=== PATIENT | female | born 1990 | race Caucasian/White ===

== ENCOUNTER 2019-04-22 01:43 | Emergency (ER) | payer MEDICAID, MEDICARE ==
[2019-04-22 01:59] VITALS: BP 161/104; PULSE 110
--- NOTE | 2019-04-22 02:47 | EDM.PDOC ---
ED HPI GENERAL MEDICAL PROBLEM - General Chief Complaint: Laceration Stated Complaint: FINGER LACERATION Time Seen by Provider: 04/22/19 02:27 Source of Information: Reports: Patient History Limitations: Reports: No Limitations - History of Present Illness INITIAL COMMENTS - FREE TEXT/NARRATIVE: Ms. Champion is a pleasant 28-year-old woman with a past history significant for depression, PTSD, and fibromyalgia, who states that she accidentally lacerated the dorsal aspect of her left 2nd finger around 01:30 with a "regular kitchen knife". She is otherwise uninjured. She states that her last tetanus vaccination was in 2013. The patient's PCP is Dr. Lindsay Varghese. She did not receive an influenza vaccine this season, but agreed to receive one here. Left Finger-Index Pain Score (Numeric/FACES): 3 - Related Data Allergies Allergy/AdvReac Type Severity Reaction Status Date / Time duloxetine [From Cymbalta] Allergy Other Verified 04/22/19 02:00 milk Allergy Nausea Verified 04/22/19 02:00 nickel Allergy Rash Verified 04/22/19 02:00 Home Meds: Home Meds Amitriptyline [Elavil] 50 mg PO BEDTIME 04/22/19 [History] Fluticasone Propionate [Flovent HFA] 1 puff INH BID 04/22/19 [History] Gabapentin [Neurontin] 600 mg PO BID 04/22/19 [History] Insulin Aspart [NovoLOG] See Protocol SUBCUT WITHMEALSANDBED 04/22/19 [History] Insulin Glarg,Human.Rec.Analog [Lantus] 90 unit SUBCUT DAILY 04/22/19 [History] Omeprazole 20 mg PO DAILY 04/22/19 [History] Venlafaxine [Effexor XR] 150 mg PO DAILY 04/22/19 [History] atorvaSTATin Calcium [Lipitor] 20 mg PO DAILY 04/22/19 [History] buPROPion HCl [Wellbutrin Xl] 300 mg PO DAILY 04/22/19 [History] lisinopriL [Lisinopril] 20 mg PO DAILY 04/22/19 [History] metFORMIN [Glucophage] 500 mg PO BIDMEALS 04/22/19 [History] Past Medical History Cardiovascular History: Reports: High Cholesterol, Hypertension Respiratory History: Reports: Asthma (suspected, not tested), Sleep Apnea ( nightly CPAP) Gastrointestinal History: Reports: GERD Neurological History: Reports: Neuropathy, Diabetic Psychiatric History: Reports: Depression, PTSD, Other (See Below) (Fibromyalgia) Endocrine/Metabolic History: Reports: Diabetes, Type II, Obesity/BMI 30+ - Past Surgical History HEENT Surgical History: Reports: Adenoidectomy, Oral Surgery (wisdom teeth exraction), Tonsillectomy Social & Family History - Family History Family Medical History: Unobtainable - Tobacco Use Smoking Status *Q: Never Smoker Tobacco Use Within Last Twelve Months: Vaping (CBD) - Caffeine Use Caffeine Use: Reports: Soda - Alcohol Use Alcohol Use History: Yes Alcohol Use Frequency: Rarely - Recreational Drug Use Recreational Drug Use: Yes Drug Use in Last 12 Months: No Recreational Drug Type: Reports: Marijuana/Hashish (last smoked 2013) - Living Situation & Occupation Living situation: Reports: Single, Alone Occupation: Unemployed ED ROS GENERAL - Review of Systems Review Of Systems: Comprehensive ROS is negative, except as noted in HPI. ED EXAM, SKIN/RASH Exam: See Below Exam Limited By: No Limitations General Appearance: Alert, WD/WN, No Apparent Distress Extremities: Other (There is a 1 cm linear laceration running diagonally over the dorsal aspect of the patient's left second distal phalanx. The laceration does not involve the nailbed. There is no tendinous injury. Neurovascular status of the finger is intact.) ED SKIN PROCEDURES - Laceration/Wound Repair Left Hand Appearance: Subcutaneous, Linear, Clean Distal NVT: Neuro & Vascular Intact, No Tendon Injury Skin Prep: Saline Exploration/Debridement/Repair: Wound Explored, In a Bloodless Field, Explored to Base, No Foreign Material Found Closed with: Dermabond Lac/Wound length In cm: 1.0 Sterile Dressing Applied: None Tetanus Status Addressed: Yes Complications: No Course - Vital Signs Last Recorded V/S: Last Vital Signs Temp 36.3 C 04/22/19 01:56 Pulse 110 H 04/22/19 01:56 Resp 20 04/22/19 01:56 BP 161/104 H 04/22/19 01:56 Pulse Ox 98 04/22/19 01:56 - Orders/Labs/Meds Orders: Active Orders 24 hr Category Date Time Status Influenza Vaccine Charge [RC] .DISCHARGE Care 04/22/19 02:47 Active Meds: Medications Discontinued Medications Generic Name Dose Route Start Last Admin Trade Name Freq PRN Reason Stop Dose Admin Influenza Virus Vaccine 60 mcg 04/22/19 03:00 04/22/19 02:52 Fluzone Quad [id number] Syringe IM 04/22/19 03:01 60 mcg .ONCE ONE Administration - Re-Assessments/Exams Free Text/Narrative Re-Assessment/Exam: 04/22/19 02:44 The laceration to the dorsal aspect of the patient's left 2nd finger is not deep , and the edges of the wound appose each other nicely, therefore the wound was a good candidate for Dermabond. I applied Dermabond to the wound. The patient tolerated the procedure well. She will be given an influenza vaccine prior to discharge. Departure - Departure Time of Disposition: 02:45 Disposition: Home, Self-Care 01 Condition: Good Clinical Impression: Laceration of left index finger - Discharge Information *PRESCRIPTION DRUG MONITORING PROGRAM REVIEWED*: Not Applicable *COPY OF PRESCRIPTION DRUG MONITORING REPORT IN PATIENT LATOSHA: Not Applicable Instructions: Laceration Care, Adult, [id number] Referrals: Lindsay Varghese MD [Primary Care Provider] - Forms: ED Department Discharge Additional Instructions: You were seen in the emergency room after accidentally cutting the back of your left index finger. The wound was closed with Dermabond. After the glue has cured, we recommend that you apply Band-Aid over the Dermabond on a daily basis, to help protect it. Do not pick at the glue. Allow it to flake off on its own over the course of the next several days. If any other problems, please do not hesitate to return to the ER. *You were given an influenza vaccine during your ER visit.* Sepsis Event Note - Evaluation Sepsis Screening Result: No Definite Risk - Focused Exam Date Exam was Performed: 04/23/19 Time Exam was Performed: 02:37 - My Orders Last 24 Hours: My Active Orders 04/22/19 02:47 Influenza Vaccine Charge [RC] .DISCHARGE - Assessment/Plan Last 24 Hours: My Active Orders 04/22/19 02:47 Influenza Vaccine Charge [RC] .DISCHARGE
[2019-04-22] MEDS ORDERED: FLU Vacc QS2019-20(6MOS+)/PF 60 MCG/0.5 ML SYRINGE IM ONE (03:00)
== END 2019-04-22 02:57 | disposition home or self-care (01) ==
LOC: JD.ED 01:43
DX: S61.211A Laceration without foreign body of left index finger without damage to nail, initial encounter (principal); E11.9 Type 2 diabetes mellitus without complications; I10 Essential (primary) hypertension; Z91.048 Other nonmedicinal substance allergy status; Z79.899 Other long term (current) drug therapy; Z79.4 Long term (current) use of insulin; Z91.011 Allergy to milk products; Z88.8 Allergy status to other drugs, medicaments and biological substances; W26.0XXA Contact with knife, initial encounter
CPT/HCPCS: 12001; 90686; 99282; G0008

== ENCOUNTER 2019-06-13 21:54 | Emergency (ER) | payer MEDICARE, MEDICAID ==
[2019-06-13 22:10] VITALS: PULSE 110
--- NOTE | 2019-06-13 23:14 | EDM.PDOC ---
ED HPI GENERAL MEDICAL PROBLEM - General Chief Complaint: Respiratory Problem Stated Complaint: BACK PAIN/SOB Time Seen by Provider: 06/13/19 22:56 Source of Information: Reports: Patient History Limitations: Reports: No Limitations - History of Present Illness INITIAL COMMENTS - FREE TEXT/NARRATIVE: Ms. Champion is a pleasant 28-year-old woman with a past medical history significant for suspected asthma, obstructive sleep apnea, noncompliant with CPAP, depression, PTSD, fibromyalgia, diabetes, and morbid obesity, who states that she developed dyspnea 2 days ago, which has progressively been getting worse, and wheezing today, although she acknowledges she is not wheezing now. She states that she has a slight nonproductive cough that is chronic and no worse than usual. No recent fever or chills. She has had slight constipation. No recent nausea, vomiting, diarrhea, or urinary symptoms. The patient has taken 2 DuoNebs per day, with her most recent dose around 16:00 this afternoon. The patient states that she has had similar symptoms in the past, many times. The patient's PCP is Dr. Lindsay Varghese. She received an influenza vaccine in March. Generalized Pain Score (Numeric/FACES): 6 - Related Data Allergies Allergy/AdvReac Type Severity Reaction Status Date / Time duloxetine [From Cymbalta] Allergy Other Verified 06/13/19 22:07 milk Allergy Nausea Verified 06/13/19 22:07 nickel Allergy Rash Verified 06/13/19 22:07 Home Meds: Home Meds Amitriptyline [Elavil] 25 mg PO BEDTIME 04/22/19 [History] Fluticasone Propionate [Flovent HFA] 1 puff INH BID 04/22/19 [History] Gabapentin [Neurontin] 600 mg PO BID 04/22/19 [History] Insulin Aspart [NovoLOG] See Protocol SUBCUT WITHMEALSANDBED 04/22/19 [History] Insulin Glarg,Human.Rec.Analog [Lantus] 90 unit SUBCUT DAILY 04/22/19 [History] Omeprazole 20 mg PO DAILY 04/22/19 [History] Venlafaxine [Effexor XR] 150 mg PO DAILY 04/22/19 [History] atorvaSTATin Calcium [Lipitor] 20 mg PO DAILY 04/22/19 [History] buPROPion HCl [Wellbutrin Xl] 300 mg PO DAILY 04/22/19 [History] lisinopriL [Lisinopril] 20 mg PO DAILY 04/22/19 [History] metFORMIN [Glucophage] 500 mg PO BIDMEALS 04/22/19 [History] lamoTRIgine [Lamictal] 25 mg PO DAILY 06/13/19 [History] Past Medical History Cardiovascular History: Reports: High Cholesterol, Hypertension Respiratory History: Reports: Asthma (suspected, not tested), Sleep Apnea ( noncompliant with CPAP) Gastrointestinal History: Reports: GERD Neurological History: Reports: Neuropathy, Diabetic Psychiatric History: Reports: Depression, PTSD, Other (See Below) (Fibromyalgia) Endocrine/Metabolic History: Reports: Diabetes, Type II, Obesity/BMI 30+ - Past Surgical History HEENT Surgical History: Reports: Adenoidectomy, Oral Surgery (wisdom teeth extraction) Social & Family History - Family History Family Medical History: Unobtainable - Tobacco Use Smoking Status *Q: Never Smoker Tobacco Use Within Last Twelve Months: Vaping (CBD) - Caffeine Use Caffeine Use: Reports: Tea - Alcohol Use Alcohol Use History: Yes Alcohol Use Frequency: Rarely - Recreational Drug Use Recreational Drug Use: Yes Drug Use in Last 12 Months: No Recreational Drug Type: Reports: Marijuana/Hashish (last smoked 2013) - Living Situation & Occupation Living situation: Reports: Single, Alone Occupation: Unemployed ED ROS GENERAL - Review of Systems Review Of Systems: Comprehensive ROS is negative, except as noted in HPI. ED EXAM, GENERAL - Physical Exam Exam: See Below Exam Limited By: No Limitations General Appearance: Alert, WD/WN, No Apparent Distress Eye Exam: Bilateral Eye: EOMI, Normal Inspection Ears: Normal External Exam, Normal Canal, Hearing Grossly Normal, Normal TMs Nose: Normal Inspection, Normal Mucosa, No Blood Throat/Mouth: Normal Inspection, Normal Lips, Normal Teeth, Normal Gums, Normal Oropharynx, Normal Voice, No Airway Compromise Head: Atraumatic, Normocephalic Neck: Normal Inspection, Supple, Non-Tender, Full Range of Motion. No: Lymphadenopathy (L), Lymphadenopathy (R) Respiratory/Chest: No Respiratory Distress, Lungs Clear, Normal Breath Sounds, No Accessory Muscle Use. No: Decreased Breath Sounds, Crackles, Rhonchi, Wheezing, Stridor, Prolonged Expiration Cardiovascular: Normal Peripheral Pulses, Regular Rate, Rhythm, No Edema, No Gallop, No JVD, No Murmur, No Rub Peripheral Pulses: 4+: Radial (L), Radial (R) GI/Abdominal: Normal Bowel Sounds, Soft, Non-Tender, No Organomegaly, No Distention, No Abnormal Bruit, No Mass (Female) Exam: Deferred Rectal (Female) Exam: Deferred Back Exam: Normal Inspection, Full Range of Motion, NT Extremities: Normal Inspection, Normal Range of Motion, No Pedal Edema, Normal Capillary Refill Neurological: Alert, Oriented, Normal Cognition, No Motor/Sensory Deficits Psychiatric: Normal Affect Skin Exam: Warm, Dry, Intact, Normal Color, No Rash Course - Vital Signs Last Recorded V/S: Last Vital Signs Temp 36.9 C 06/14/19 00:37 Pulse 110 H 06/13/19 22:02 Resp 22 H 06/14/19 00:37 BP 131/86 06/14/19 00:37 Pulse Ox 96 06/14/19 00:37 - Re-Assessments/Exams Free Text/Narrative Re-Assessment/Exam: 06/13/19 23:10 I suspect that the patient has a viral URI with cough. It is possible that she has influenza, however, with no fever, I think it is unlikely, and even if positive, it has been 48 hours since the onset of her symptoms, therefore she would not be a candidate for Tamiflu. For today's purposes, I am recommending that we check a chest x-ray. Provided no infiltrate is seen, I don't believe blood work is needed, however, if the chest x-ray does show an infiltrate, then we will need blood work. 06/14/19 00:19 2-view chest radiograph reviewed. Poor inspiratory effort. The cardiac silhouette is within normal limits. No pulmonary vascular congestion. No pleural effusions. No focal infiltrate. No pneumothorax. Formal read per the Radiologist pending. 06/14/19 00:21 X-ray results discussed with the patient. I suspect that she is suffering from a viral URI with cough. Departure - Departure Time of Disposition: 00:22 Disposition: Home, Self-Care 01 Condition: Good Clinical Impression: Viral URI with cough - Discharge Information *PRESCRIPTION DRUG MONITORING PROGRAM REVIEWED*: Not Applicable *COPY OF PRESCRIPTION DRUG MONITORING REPORT IN PATIENT LATOSHA: Not Applicable Instructions: Cough, Adult, [id number], Upper Respiratory Infection, Adult, [id number] Referrals: Lindsay Varghese MD [Primary Care Provider] - Forms: ED Department Discharge Additional Instructions: You were seen in the emergency room for chronic cough, 2 days of shortness of breath, and wheezing today. Workup in the ER included a chest x-ray, which returned normal. You do not have pneumonia. Based on your history, physical exam, and ER chest x-ray, you are most likely suffering from a viral URI, also known as a common cold. Unfortunately, there are no medicines to treat a common cold - it will have to run its course. As discussed, we do not recommend that you take any [id number] cough or cold remedies, as they have been shown to be of no benefit, but do have side effects, such as a stomachache. Stay adequately hydrated. If any other problems, please do not hesitate to return to the ER. Sepsis Event Note - Evaluation Sepsis Screening Result: Possible Sepsis Risk - Focused Exam Vital Signs: Vital Signs Temp Pulse Resp BP Pulse Ox 06/14/19 00:37 36.9 C 22 H 131/86 96 06/13/19 22:02 37.6 C 110 H 24 H 163/101 H 98 Date Exam was Performed: 06/14/19 Time Exam was Performed: 09:26
[2019-06-14 00:42] VITALS: BP 131/86
--- NOTE | 2019-06-14 07:22 | CR ---
Chest: Two views of the chest were obtained. Comparison: No prior chest x-ray, prior chest CT of 04/24/16. Heart size and mediastinum are normal. Lungs are clear. Bony structures appear within normal limits. Impression: 1. Nothing acute is appreciated on two-view chest x-ray. Diagnostic code #1 This report was dictated in Mountain Standard Time
== END 2019-06-14 00:39 | disposition home or self-care (01) ==
LOC: JD.ED 21:54
DX: J06.9 Acute upper respiratory infection, unspecified (principal); I10 Essential (primary) hypertension; E78.00 Pure hypercholesterolemia, unspecified; E11.40 Type 2 diabetes mellitus with diabetic neuropathy, unspecified; E66.9 Obesity, unspecified; J45.909 Unspecified asthma, uncomplicated; K21.9 Gastro-esophageal reflux disease without esophagitis; F32.9 Major depressive disorder, single episode, unspecified; Z88.8 Allergy status to other drugs, medicaments and biological substances; Z79.4 Long term (current) use of insulin; Z91.011 Allergy to milk products; Z91.048 Other nonmedicinal substance allergy status; Z79.51 Long term (current) use of inhaled steroids; Z79.899 Other long term (current) drug therapy
CPT/HCPCS: 71046; 71046-26; 99282; 99284-25

== ENCOUNTER 2019-09-02 20:48 | Emergency (ER) | payer MEDICARE, MEDICAID ==
[2019-09-02 20:57] VITALS: BP 144/81; PULSE 95
[2019-09-02] MEDS ORDERED: Fluorescein 1 MG Ophth Strip EYERT ONE (21:06)
[2019-09-02] MEDS ORDERED: Tetracaine HCl/PF 0.5% 4 ML Bottle EYERT ONE (21:07)
[2019-09-02] MEDS ORDERED: Proparacaine 0.5% Ophth Soln 15 ML Bottle EYERT ONE (21:17)
--- NOTE | 2019-09-02 21:18 | EDM.PDOC ---
ED HPI GENERAL MEDICAL PROBLEM - General Chief Complaint: Eye Problems Stated Complaint: RIGHT EYE PAIN & REDNESS Time Seen by Provider: 09/02/19 20:55 Source of Information: Reports: Patient History Limitations: Reports: No Limitations - History of Present Illness Onset: Today Onset Date: 09/02/19 Onset Time: 09:00 Duration: Getting Worse Location: Reports: Other (right eye) Quality: Reports: Ache Severity: Mild Improves with: Reports: None Worsens with: Reports: None Associated Symptoms: Reports: Other (right eye pain. ). Denies: Fever/Chills Right Eye Pain Score (Numeric/FACES): 10 - Related Data Allergies Allergy/AdvReac Type Severity Reaction Status Date / Time duloxetine [From Cymbalta] Allergy Intermediate Other Verified 09/02/19 20:57 milk Allergy Mild Nausea Verified 09/02/19 20:57 nickel Allergy Mild Rash Verified 09/02/19 20:57 Home Meds: Home Meds Amitriptyline [Elavil] 25 mg PO BEDTIME 04/22/19 [History] Fluticasone Propionate [Flovent HFA] 1 puff INH BID 04/22/19 [History] Gabapentin [Neurontin] 600 mg PO BID 04/22/19 [History] Insulin Aspart [NovoLOG] See Protocol SUBCUT WITHMEALSANDBED 04/22/19 [History] Insulin Glarg,Human.Rec.Analog [Lantus] 90 unit SUBCUT DAILY 04/22/19 [History] Omeprazole 20 mg PO DAILY 04/22/19 [History] Venlafaxine [Effexor XR] 150 mg PO DAILY 04/22/19 [History] atorvaSTATin Calcium [Lipitor] 20 mg PO DAILY 04/22/19 [History] buPROPion HCL [Wellbutrin Xl] 300 mg PO DAILY 04/22/19 [History] lisinopriL [Lisinopril] 20 mg PO DAILY 04/22/19 [History] metFORMIN [Glucophage] 500 mg PO BIDMEALS 04/22/19 [History] lamoTRIgine [Lamictal] 25 mg PO DAILY 06/13/19 [History] Past Medical History Cardiovascular History: Reports: High Cholesterol, Hypertension Respiratory History: Reports: Asthma, Sleep Apnea Other Respiratory History: cpap while sleeping Gastrointestinal History: Reports: GERD Musculoskeletal History: Reports: Fibromyalgia Neurological History: Reports: Neuropathy, Diabetic Psychiatric History: Reports: Depression, PTSD, Other (See Below) Endocrine/Metabolic History: Reports: Diabetes, Type II, Obesity/BMI 30+ - Past Surgical History HEENT Surgical History: Reports: Adenoidectomy, Oral Surgery Social & Family History - Family History Family Medical History: Unobtainable - Tobacco Use Smoking Status *Q: Never Smoker - Caffeine Use Caffeine Use: Reports: None - Recreational Drug Use Recreational Drug Use: No - Living Situation & Occupation Living situation: Reports: Single, Alone Occupation: Unemployed ED ROS GENERAL - Review of Systems Review Of Systems: See Below Constitutional: Reports: No Symptoms. Denies: Fever, Chills HEENT: Reports: Contact Lenses, Eye Pain Respiratory: Denies: Shortness of Breath Cardiovascular: Denies: Chest Pain Endocrine: Denies: Fatigue GI/Abdominal: Reports: No Symptoms : Reports: No Symptoms Musculoskeletal: Reports: No Symptoms Skin: Reports: No Symptoms Neurological: Denies: Headache Psychiatric: Reports: No Symptoms Hematologic/Lymphatic: Reports: No Symptoms Immunologic: Reports: No Symptoms ED EXAM GENERAL W FULL EYE - Physical Exam Exam: See Below Exam Limited By: Altered Mental Status General Appearance: Alert, WD/WN, No Apparent Distress Eye Exam: Bilateral Eye: EOMI, PERRL Visual Acuity (R) 20/: 30 (bilateral 20/15) Visual Acuity (L) 20/: 15 Eyelids: Bilateral: Normal Appearance Cornea Exam: Right: Corneal Abrasion (at 1 o'clock) Extraocular Movements: Bilateral: Intact Pupillary Size: Bilateral: 3 mm Pupillary Reaction: Bilateral: Brisk Respiratory/Chest: No Respiratory Distress, Lungs Clear, Normal Breath Sounds, No Accessory Muscle Use, Chest Non-Tender Cardiovascular: Normal Peripheral Pulses, Regular Rate, Rhythm, No Edema, No Gallop, No JVD, No Murmur, No Rub Neurological: Alert, Oriented Psychiatric: Normal Affect, Normal Mood Skin Exam: Warm, Dry, Intact, Normal Color, No Rash Lymphatic: No Adenopathy ED EYE w/ Add Procedure - Eye Procedure Antibiotic Oinment/Drps Admin: Right Eye Progress: Tetracaine was applied to right eye fluorescein strip administered with lamp used to reveal a corneal abrasion at 1:00. Patient Tolerated procedure well. Course - Vital Signs Last Recorded V/S: Last Vital Signs Temp 97.8 F 09/02/19 20:53 Pulse 95 09/02/19 20:53 Resp 24 H 09/02/19 20:53 BP 144/81 H 09/02/19 20:53 Pulse Ox 100 09/02/19 20:53 - Orders/Labs/Meds Orders: Active Orders 24 hr Category Date Time Status Visual Acuity [Vision Test] [RC] ASDIRECTED Care 09/02/19 21:27 Active Visual Acuity [Vision Test] [RC] ASDIRECTED Care 09/02/19 21:34 Active Dexamethasone/Tobramycin [Tobradex Ophth Susp] Med 09/02/19 21:30 Active 1 ml EYERT Q4H Medication Orders Tobramycin/Dexamethasone (Tobradex Ophth Susp) 1 ml EYERT Q4H ANGELA Meds: Medications Generic Name Dose Route Start Last Admin Trade Name Freq PRN Reason Stop Dose Admin Tobramycin/Dexamethasone 1 ml 09/02/19 21:30 Tobradex Ophth Susp EYERT Q4H ANGELA Discontinued Medications Generic Name Dose Route Start Last Admin Trade Name Freq PRN Reason Stop Dose Admin Fluorescein Sodium 1 mg 09/02/19 21:06 09/02/19 21:15 Ful-Maggie EYERT 09/02/19 21:07 1 mg ONETIME ONE Administration Proparacaine HCl 1 ml 09/02/19 21:17 09/02/19 21:17 Proparacaine 0.5% Ophth Soln EYERT 09/02/19 21:18 2 drop ONETIME ONE Administration Tetracaine HCl 0.1 ml 09/02/19 21:07 09/02/19 21:17 Tetracaine 0.5% Steri-Unit Kristel EYERT 09/02/19 21:08 Not Given ASDIRECTED ONE Departure - Departure Time of Disposition: 21:37 Disposition: Home, Self-Care 01 Condition: Good Clinical Impression: Corneal abrasion Qualifiers: Encounter type: initial encounter Laterality: right Qualified Code(s): S05.01XA - Injury of conjunctiva and corneal abrasion without foreign body, right eye, initial encounter - Discharge Information Instructions: Corneal Abrasion, [id number] Referrals: Lindsay Varghese MD [Primary Care Provider] - Forms: ED Department Discharge Additional Instructions: You were seen and evaluated today for right eye pain and irritation. Your examination revealed a corneal abrasion. This is a scrape to the cornea of your eye. You have been prescribed tobramycin eyedrops. Use 1 to 2 drops in your right ear 4 times a day. Follow-up with your production machine tender. Return to the emergency room for any new acute worsening symptoms. You may take Tylenol ibuprofen for pain. Sepsis Event Note - Evaluation Sepsis Screening Result: No Definite Risk - Focused Exam Vital Signs: Vital Signs Temp Pulse Resp BP Pulse Ox 09/02/19 20:53 97.8 F 95 24 H 144/81 H 100 Date Exam was Performed: 09/02/19 Time Exam was Performed: 21:36 - My Orders Last 24 Hours: My Active Orders 09/02/19 21:27 Visual Acuity [Vision Test] [RC] ASDIRECTED 09/02/19 21:30 Dexamethasone/Tobramycin [Tobradex Ophth Susp] 1 ml EYERT Q4H 09/02/19 21:34 Visual Acuity [Vision Test] [RC] ASDIRECTED - Assessment/Plan Last 24 Hours: My Active Orders 09/02/19 21:27 Visual Acuity [Vision Test] [RC] ASDIRECTED 09/02/19 21:30 Dexamethasone/Tobramycin [Tobradex Ophth Susp] 1 ml EYERT Q4H 09/02/19 21:34 Visual Acuity [Vision Test] [RC] ASDIRECTED
[2019-09-02] MEDS ORDERED: Dexamethasone/Tobramycin 0.1-0.3% Ophth Susp 5 ML Bottle EYERT SCH (21:30)
== END 2019-09-02 21:50 | disposition home or self-care (01) ==
LOC: JD.ED 20:48
DX: S05.01XA Injury of conjunctiva and corneal abrasion without foreign body, right eye, initial encounter (principal); E78.00 Pure hypercholesterolemia, unspecified; I10 Essential (primary) hypertension; J45.909 Unspecified asthma, uncomplicated; K21.9 Gastro-esophageal reflux disease without esophagitis; E11.40 Type 2 diabetes mellitus with diabetic neuropathy, unspecified; F32.9 Major depressive disorder, single episode, unspecified; E66.9 Obesity, unspecified; Z79.4 Long term (current) use of insulin; Z79.899 Other long term (current) drug therapy; Z68.44 Body mass index [BMI] 60.0-69.9, adult; Z88.8 Allergy status to other drugs, medicaments and biological substances; Z91.011 Allergy to milk products; Z91.09 Other allergy status, other than to drugs and biological substances; X58.XXXA Exposure to other specified factors, initial encounter
CPT/HCPCS: 99283; A9270

== ENCOUNTER 2019-10-05 16:09 | Emergency (ER) | payer MEDICARE, MEDICAID ==
[2019-10-05 16:23] VITALS: BP 174/94; PULSE 98
--- NOTE | 2019-10-05 16:56 | EDM.PDOCBH ---
ED HPI GENERAL MEDICAL PROBLEM - General Chief Complaint: Behavioral/Psych Stated Complaint: [facility] Time Seen by Provider: 10/05/19 16:11 Source of Information: Reports: Patient, RN Notes Reviewed History Limitations: Reports: No Limitations - History of Present Illness INITIAL COMMENTS - FREE TEXT/NARRATIVE: Patient is a 29-year-old female who presents to the ED for the evaluation of her self cutting. Patient was brought here via [place] [facility], as she stated she called the suicide hotline, because she just wanted to talk with someone. Patient notes that she has been having increasing fights with her boyfriend/ex-boyfriend, for some time, and had an especially bad fight this morning, she states that she picked up a steak knife and wanted to release some pain, so she ended up cutting her left forearm. This resulted in 2 superficial lacerations measuring about 4 cm each on the anterior surface of the left forearm. Patient denies any numbness and tingling in the arm, she has all range of motion of her wrist and or fingers. The patient specifically denied wanting to kill her self, at least 3 or 4 times during initial exam. Patient states that she called the suicide hotline because she wanted to talk with someone not that she wanted to kill herself. She notes that she does not have a lot of friends in [place], that her social algaaciq is quite small. She does have a psychiatrist out of [place], and a counselor in [place] that she seems to get along with. Patient states she is taking her medications as prescribed. Patient believes she is up-to-date on her tetanus vaccination. Patient states that she has a history of bipolar depression that is well controlled at this time. Bleeding is well controlled at the laceration sites, she denies any other sick-like symptoms, fever/chills, cough/shortness of breath , chest pain, nausea/vomiting/diarrhea. The patient's primary care provider would be Lindsay Varghese in the [facility]. Generalized Pain Score (Numeric/FACES): 7 - Related Data Allergies Allergy/AdvReac Type Severity Reaction Status Date / Time duloxetine [From Cymbalta] Allergy Severe Other Verified 10/05/19 16:11 milk Allergy Severe Nausea Verified 10/05/19 16:11 nickel Allergy Severe Rash Verified 10/05/19 16:11 Home Meds: Home Meds Fluticasone Propionate [Flovent HFA] 1 puff INH BID 04/22/19 [History] Gabapentin [Neurontin] 600 mg PO BID 04/22/19 [History] Insulin Aspart [NovoLOG] See Protocol SUBCUT WITHMEALSANDBED 04/22/19 [History] Insulin Glarg,Human.Rec.Analog [Lantus] 90 unit SUBCUT DAILY 04/22/19 [History] Omeprazole 20 mg PO DAILY 04/22/19 [History] atorvaSTATin Calcium [Lipitor] 20 mg PO DAILY 04/22/19 [History] lisinopriL [Lisinopril] 20 mg PO DAILY 04/22/19 [History] metFORMIN [Glucophage] 500 mg PO BIDMEALS 04/22/19 [History] lamoTRIgine [Lamictal] 25 mg PO DAILY 06/13/19 [History] Ezetimibe [Zetia] 10 mg PO DAILY 10/05/19 [History] Gabapentin [Neurontin] 1,200 mg PO QPM 10/05/19 [History] Zolpidem Tartrate [Ambien] 5 mg PO QPM 10/05/19 [History] metFORMIN [Glucophage] 1,000 mg PO QAM 10/05/19 [History] Past Medical History Cardiovascular History: Reports: High Cholesterol, Hypertension Respiratory History: Reports: Asthma, Sleep Apnea Other Respiratory History: cpap while sleeping Gastrointestinal History: Reports: GERD Musculoskeletal History: Reports: Fibromyalgia Neurological History: Reports: Neuropathy, Diabetic Psychiatric History: Reports: Depression, PTSD, Other (See Below) Endocrine/Metabolic History: Reports: Diabetes, Type II, Obesity/BMI 30+ - Past Surgical History HEENT Surgical History: Reports: Adenoidectomy, Oral Surgery Social & Family History - Family History Family Medical History: Unobtainable - Tobacco Use Smoking Status *Q: Never Smoker - Caffeine Use Caffeine Use: Reports: None - Recreational Drug Use Recreational Drug Use: No - Living Situation & Occupation Living situation: Reports: Single, Alone Occupation: Unemployed ED ROS GENERAL - Review of Systems Review Of Systems: Comprehensive ROS is negative, except as noted in HPI. ED EXAM, BEHAVIORAL HEALTH - Physical Exam Exam: See Below Exam Limited By: No Limitations General Appearance: Alert, WD/WN, No Apparent Distress Ears: Normal External Exam Nose: Normal Inspection Throat/Mouth: Normal Inspection, Normal Lips, Normal Teeth, Normal Gums, Normal Oropharynx, Normal Voice, No Airway Compromise Head: Atraumatic, Normocephalic Neck: Normal Inspection Respiratory/Chest: No Respiratory Distress, Lungs Clear, Normal Breath Sounds, No Accessory Muscle Use, Chest Non-Tender Cardiovascular: Normal Peripheral Pulses, Regular Rate, Rhythm, No Murmur Extremities: Normal Range of Motion, Normal Capillary Refill Neurological: Alert, Normal Mood/Affect, Normal Cognition, Normal Reflexes, No Motor/Sensory Deficits, Oriented x 3 Psychiatric: Alert, Normal Cognition, Normal Mood, Flat Affect (pt has a flat affect, but is very talkative and forthcoming, states that this was explicitly to feel something and not an attempt to end her life.). No: Uncooperative, Suicidal Plan, Suicidal Thoughts, Auditory Hallucinations, Visual Hallucinations , Paranoid Thoughts, Threatening Behavior Skin Exam: Warm, Dry, Normal color, No rash, Signs of self injury (2-4 cm linear lacerations to the anterior surface of the left forearm, bleeding is controlled, these are superficial and do not need suturing at this time.) COURSE, BEHAVIORAL HEALTH COMP - Course Vital Signs: Last Vital Signs Temp 98.1 F 10/05/19 16:18 Pulse 98 10/05/19 16:18 Resp 13 10/05/19 16:18 BP 174/94 H 10/05/19 16:18 Pulse Ox 100 10/05/19 16:18 Discharge vs Psych Eval/Treatment:: 10/05/19 16:56 Patient presents to the ED for cutting herself today. Wounds were cleansed with saline and gauze, these do not require laceration repair. They will be dressed with some bacitracin and topical bandages, I do not believe the patient was doing this an attempt to end her life, I did talk with her about the importance of trying to call her counselor or talk with a friend when she is feeling this way, she expressed understanding at this time. She will be discharged home with general recommendations. Departure - Departure Time of Disposition: 16:58 Disposition: Home, Self-Care 01 Condition: Good Clinical Impression: Deliberate self-cutting - Discharge Information *PRESCRIPTION DRUG MONITORING PROGRAM REVIEWED*: No *COPY OF PRESCRIPTION DRUG MONITORING REPORT IN PATIENT LATOSHA: No Instructions: Self-Destructive Behavior Additional Instructions: You were evaluated in the ER today regarding the injuries on your left forearm. These were dressed in an appropriate fashion, please watch for any signs of infection, keep these areas clean and dry with warm and soapy water. Recommend you follow-up with your counselor or psychiatrist tomorrow, to try to get your appointments moved up so you can talk with them about what is going on in your life, as this might be a better outlet for you than self-harm. At this moment in time you are not deemed a suicide threat, and you will be discharged home with general recommendations. I would recommend you have a friend or person close to you come check on you once or twice tonight just to make sure that you are okay. Please return to the ED at any time if the symptoms should change or worsen. Sepsis Event Note (ED) - Evaluation Sepsis Screening Result: No Definite Risk - Focused Exam Vital Signs: Vital Signs Temp Pulse Resp BP Pulse Ox 10/05/19 16:18 98.1 F 98 13 174/94 H 100
== END 2019-10-05 17:16 | disposition home or self-care (01) ==
LOC: JD.ED 16:09
DX: S51.812A Laceration without foreign body of left forearm, initial encounter (principal); I10 Essential (primary) hypertension; E78.00 Pure hypercholesterolemia, unspecified; J45.909 Unspecified asthma, uncomplicated; K21.9 Gastro-esophageal reflux disease without esophagitis; F32.9 Major depressive disorder, single episode, unspecified; E11.40 Type 2 diabetes mellitus with diabetic neuropathy, unspecified; E66.9 Obesity, unspecified; Z68.44 Body mass index [BMI] 60.0-69.9, adult; Z88.8 Allergy status to other drugs, medicaments and biological substances; Z91.048 Other nonmedicinal substance allergy status; Z91.011 Allergy to milk products; Z79.4 Long term (current) use of insulin; Z79.899 Other long term (current) drug therapy; X78.8XXA Intentional self-harm by other sharp object, initial encounter
CPT/HCPCS: 99283; 99284